=== PATIENT | female | born 1995 | race African-American/Black ===

== ENCOUNTER 2017-02-17 17:46 | Emergency (ER) | payer OTHER ==
[~2017-02-17] VITALS: Ht 160 cm; Wt 86.3 kg
[~2017-02-17 17:46] MED LIST: EPIP0.3I IM; METR-1 PO
[2017-02-17 17:57] VITALS: BP 119/81; PULSE 95; RESP 16; TEMP 98.4; O2SAT 99
[2017-02-17 18:23] LABS: BLOOD, URINE TRACE (NEG); GLUCOSE,URINE NEG (NEG); KETONE, URINE 15 mg/dL (NEG); NITRITE,URINE NEG (NEG); PH, URINE 5.5 (5.0-8.5)
[2017-02-17] MEDS ORDERED: CIPR-9 PO (18:23)
[2017-02-17 18:29] LABS: URINE COLOR YELLOW (YELLW/STRAW)
[2017-02-17 18:30] LABS: BACTERIA, URINE OCC /hpf; COMMENT (UR) CULT NOT INDICATED; CULTURE IF INDICATED CULT NOT INDICATED; RBC, URINE 0-3 /hpf (0-3); WBC, URINE 0-2 /hpf (0-5)
--- NOTE | 2017-02-17 18:35 | PD ---
HPI . Suprapubic pain Chief Complaint: Abdominal Pain Time Seen by Provider: 18:10 Travel History International Travel<30 days: No Contact w/Intl Traveler<30days: No Traveled to known affect area: No History of Present Illness HPI Patient presents with suprapubic pain. She's had it for several days. It is getting progressively worse. It is associated with urinary frequency and dysuria. She states that she called her doctor about it 2 days ago the doctor called in an order for Cipro. She was not examined prior to the initiation of Cipro. The patient does report the onset of a vaginal discharge. She has not noted any dyspareunia. She denies any abnormal vaginal bleeding. The patient reports no exacerbating or relieving factors. Her pain is rated at 8/10. PFSH Past Medical History Diminished Hearing: No Gastrointestinal Disorders: Yes (INCREASED LIVER ENZYMES) ?: Not LMP: 02/28/17 Social History Alcohol Use: Yes (3 x week) Tobacco Use: No Substance Use: Yes (weed) Allergies-Medications (Allergen,Severity, Reaction): Coded Allergies: Codeine (Unverified Allergy, Severe, 02/17/17) Reported Meds & Prescriptions Reported Meds & Active Scripts Active Reported Cipro (Ciprofloxacin HCl) 500 Mg Tab 500 Mg PO BID Review of Systems Except as stated in HPI: all other systems reviewed are Neg General / Constitutional: No: Fever, Chills Gastrointestinal: No: Nausea, Vomiting, Diarrhea Genitourinary: Positive: Urgency, Frequency, Dysuria, Pelvic Pain, Discharge Physical Exam Narrative GENERAL: Patient is awake and alert and in no acute distress. SKIN: Warm and dry. HEAD: Atraumatic. Normocephalic. EYES: Pupils equal and round. ENT: No nasal bleeding or discharge. Mucous membranes pink and moist. NECK: Trachea midline. CARDIOVASCULAR: Regular rate and rhythm. RESPIRATORY: No accessory muscle use. GASTROINTESTINAL: Abdomen soft. Suprapubic tenderness. : Normal female external genitalia. White discharge in the vaginal vault. Cervical os is closed. Positive cervical motion tenderness. Bilateral adnexal tenderness. No masses. MUSCULOSKELETAL: No obvious deformities. No edema. NEUROLOGICAL: Awake and alert. No obvious cranial nerve deficits. Motor grossly within normal limits. Normal speech. PSYCHIATRIC: Appropriate mood and affect; insight and judgment normal. Data Data Last Documented VS Vital Signs Date Time Temp Pulse Resp B/P Pulse Ox O2 Delivery O2 Flow Rate FiO2 02/17/17 17:57 98.4 95 16 119/81 99 Orders Gc And Chlamydia Pcr (02/17/17 18:10) Wet Prep Profile (02/17/17 18:10) Urinalysis - C+S If Indicated (02/17/17 18:10) Ed Urine Pregnancytest Poc (02/17/17 18:10) Ceftriaxone Inj (Rocephin Inj) (02/17/17 18:45) Lidocaine 1% Inj (50 Ml) (Xylocaine 1% I (02/17/17 18:45) Labs Laboratory Tests Test 02/17/17 18:15 Urine Color YELLOW Urine Turbidity CLEAR Urine pH 5.5 Urine Specific [place] 1.017 Urine Protein NEG mg/dL Urine Glucose (UA) NEG mg/dL Urine Ketones 15 mg/dL Urine Occult Blood TRACE Urine Nitrite NEG Urine Bilirubin NEG Urine Leukocyte Esterase NEG Urine RBC 0-3 /hpf Urine WBC 0-2 /hpf Urine Squamous Epithelial 6-8 /hpf Cells Urine Bacteria OCC /hpf Microscopic Urinalysis Comment CULT NOT INDICATED MDM Medical Decision Making Medical Screen Exam Complete: Yes Emergency Medical Condition: Yes Differential Diagnosis Differential diagnosis of pelvic pain includes but is not limited to UTI, PID, ectopic , spontaneous AB, constipation, viral illness Narrative Course Patient presents for pelvic pain. She has been treated presumptively by her primary care physician for UTI for the last 2 days. Her symptoms have gotten worse rather than better. Her exam is compatible with PID. She will be treated here with Rocephin and then discharged on doxycycline and Flagyl. HCG neg. U/A>>nitrite neg, LE neg, WBC 0-2 wet prep neg. Diagnosis Primary Impression: Pelvic pain in female Additional Impression: PID (acute pelvic inflammatory disease) Patient Instructions: General Instructions, Pelvic Inflammatory Disease (DC) Med/Other Pt SpecificInfo: Prescription(s) given Scripts Tramadol 50 Mg Tab50 Mg PO Q4H PRN (PAIN) #12 TAB Ref 0 Prov:Lakesha Laws MD 02/17/17 Ibuprofen 800 Mg [id number] Mg PO Q8H PRN (Pain/Inflammation) #60 TAB Ref 0 Prov:Lakesha Laws MD 02/17/17 Metronidazole (Flagyl)500 Mg [id number] Mg PO BID 7 Days Ref 0 Prov:Lakesha Laws MD 02/17/17 Doxycycline Hyclate 100 Mg [id number] Mg PO BID #20 CAP Ref 0 Prov:Lakesha Laws MD 02/17/17 Disposition: 01 DISCHARGE HOME Condition: Stable Lakesha Laws MD Feb 17, 2017 18:35
[2017-02-17] MEDS ORDERED: DOXY100C PO (18:41)
[2017-02-17] MEDS ORDERED: TRAM50TA PO (18:41)
[2017-02-17] MEDS ORDERED: IBUP800T23 PO (18:41)
[2017-02-17] MEDS ORDERED: METR-1 PO (18:41)
[2017-02-17] MEDS ORDERED: cefTRIAXone 250 MG VIAL IM ONE (18:45)
[2017-02-17] MEDS ORDERED: LIDOCAINE HCL 1% 50 ML VIAL XX ONE (18:45)
[2017-02-17 19:37] VITALS: BP 120/77; PULSE 74; RESP 18; O2SAT 98
[2017-02-17 20:56] LABS: CHLAMYDIA PCR NOT DETECTED (NOT DETECT); NEISSERIA PCR NOT DETECTED (NOT DETECT)
== END 2017-02-17 19:39 | disposition home or self-care (01) ==
LOC: PHED 17:46
DX: N73.9 Female pelvic inflammatory disease, unspecified (principal)
CPT/HCPCS: 81001; 84703; 87210; 87491; 87591; 96372; 99284; J0696

== ENCOUNTER 2017-10-04 19:01 | Emergency (ER) | payer OTHER ==
[~2017-10-04 19:01] MED LIST changes: +CIPR-9 PO; +DOXY100C PO; -EPIP0.3I IM; +IBUP1TAB7 PO; +TRAM50TA PO
[2017-10-04 19:49] VITALS: BP 122/57; PULSE 75; RESP 20; TEMP 98.4; O2SAT 100
[2017-10-04] MEDS ORDERED: PANT20 PO (21:41)
--- NOTE | 2017-10-04 21:41 | PD ---
HPI Chief Complaint: GI Complaint Time Seen by Provider: 20:55 Travel History International Travel<30 days: No Contact w/Intl Traveler<30days: No Traveled to known affect area: No History of Present Illness HPI 22yo F with no PMH presents to the ED with c/o blood on toilet paper when she wiped herself after a bowel movement today. Said she was straining and it only happen once. Denies any fever, chest pain, sob, n/v, abdominal pain, history of hemorrhoids, focal weakness or numbness. Denies any family history of colon cancer. PFSH Past Medical History Medical History: Denies Significant Hx Diminished Hearing: No Gastrointestinal Disorders: Yes (INCREASED LIVER ENZYMES) Tetanus Vaccination: Unknown Influenza Vaccination: No ?: Not LMP: AUG 31 Past Surgical History Surgical History: No Previous Surgery Social History Alcohol Use: Yes (3 x week) Tobacco Use: No Substance Use: Yes (weed) Allergies-Medications (Allergen,Severity, Reaction): Coded Allergies: codeine (Unverified Allergy, Severe, 04/18/17) Reported Meds & Prescriptions Reported Meds & Active Scripts Active Protonix (Pantoprazole Sodium) 20 Mg Tab 20 Mg PO DAILY Tramadol (Tramadol HCl) 50 Mg Tab 50 Mg PO Q4H PRN Ibuprofen 800 Mg Tab 800 Mg PO Q8H PRN Flagyl (Metronidazole) 500 Mg Tab 500 Mg PO BID 7 Days Doxycycline Hyclate 100 Mg Cap 100 Mg PO BID Reported Cipro (Ciprofloxacin HCl) 500 Mg Tab 500 Mg PO BID Review of Systems Except as stated in HPI: all other systems reviewed are Neg Physical Exam Narrative GENERAL: 22yo F not in distress. SKIN: Focused skin assessment warm/dry. HEAD: Atraumatic. Normocephalic. EYES: Pupils equal and round. No scleral icterus. No injection or drainage. ENT: No nasal bleeding or discharge. Mucous membranes pink and moist. NECK: Trachea midline. No JVD. CARDIOVASCULAR: Regular rate and rhythm. No murmur appreciated. RESPIRATORY: No accessory muscle use. Clear to auscultation. Breath sounds equal bilaterally. GASTROINTESTINAL: Abdomen soft, non-tender, nondistended. RECTAL: +Small skin break near the anus. No external hemorrhoids. Yellow stool but it is hemaprompt positive. MUSCULOSKELETAL: No obvious deformities. No clubbing. No cyanosis. No edema. NEUROLOGICAL: Awake and alert. No obvious cranial nerve deficits. Motor grossly within normal limits. Normal speech. PSYCHIATRIC: Appropriate mood and affect; insight and judgment normal. Data Data Last Documented VS Vital Signs Date Time Temp Pulse Resp B/P (MAP) Pulse Ox O2 Delivery O2 Flow Rate FiO2 10/04/17 19:49 98.4 75 20 122/57 (78) 100 Orders Orders Ed Discharge Order (10/04/17 21:41) [facility] Medical Decision Making Medical Screen Exam Complete: Yes Emergency Medical Condition: Yes Differential Diagnosis Rectal bleeding vs. lower GI bleed Narrative Course 22yo well appearing female here with complaint of blood when she wiped herself after straining during bowel movement today. Only happen once. Pt has normal vital signs and abdominal exam is unremarkable. There is positive hemaprompt so feel that pt should follow up with GI as outpatient. Do not think further studies are needed at this time. Strict return precautions given. [facility] Point of Care Internal Pos. & Neg. Controls: Passed Fecal Specimen Occult Blood: Positive Diagnosis Primary Impression: Blood in stool Referrals: Morgan Snider MD call for appointment Blood in stool Patient Instructions: General Instructions Departure Forms: Tests/Procedures Additional Instructions: Please follow up with GI clinic for further evaluation of microscopic blood in stool. Return to the ED if symptoms worsen. Med/Other Pt SpecificInfo: Prescription(s) given Scripts Pantoprazole (Protonix) 20 Mg Tab 20 MG PO DAILY for Reflux, #15 TAB 0 Refills Prov: LaughlinGisselle 10/04/17 Disposition: 01 DISCHARGE HOME Condition: Stable Gisselle Laughlin DO Oct 04, 2017 21:41
[2017-10-04 21:50] VITALS: BP 119/60; TEMP 98.5
== END 2017-10-04 21:56 | disposition home or self-care (01) ==
LOC: PHED 19:01
DX: K92.1 Melena (principal)
CPT/HCPCS: 99283